=== PATIENT | female | born 1995 | race Caucasian/White ===

== ENCOUNTER 2016-10-23 22:18 | Emergency (ER) | payer MEDICAID ==
[~2016-10-23] VITALS: Ht 172.7 cm; Wt 112.6 kg
[2016-10-23 22:20] VITALS: BP 121/72
[2016-10-23 23:39] LABS: HCG UR OBC PASS
[2016-10-24] MEDS ORDERED: ONDANSETRON ODT 4 MG PO ONE (00:30)
[2016-10-24 02:19] LABS: BLOOD UREA NITROGEN 8 mg/dL (7-18)
== END 2016-10-24 03:00 | disposition home or self-care (01) ==
LOC: ED 10-24 02:54
DX: N64.4 Mastodynia (principal); R10.2 Pelvic and perineal pain
CPT/HCPCS: 36415; 71020; 76830; 80048; 81025; 82040; 85025

== ENCOUNTER 2018-12-23 00:43 | Emergency (ER) | payer MEDICAID, OTHER ==
[~2018-12-23] VITALS: Ht 170.2 cm; Wt 529.5 kg
[2018-12-23 01:11] VITALS: BP 117/82
== END 2018-12-23 02:47 | disposition home or self-care (01) ==
LOC: ED 02:42
DX: Z00.00 Encounter for general adult medical examination without abnormal findings (principal); F31.9 Bipolar disorder, unspecified
CPT/HCPCS: 99281